=== PATIENT | male | born 2000 | race Caucasian/White ===

== ENCOUNTER 2018-10-12 15:07 | Emergency (ER) | payer MEDICAID ==
[2018-10-12] MEDS ORDERED: LIDOCAINE 1% INJ-PF (10 MG/ML) 30 ML SDV INJ ONE (15:32)
--- NOTE | 2018-10-12 15:33 | ER Document Report ---
ED Medical Screen (RME) - General Chief Complaint: Laceration Stated Complaint: LACERATION TO LEFT MIDDLE FINGER Time Seen by Provider: 10/12/18 15:19 TRAVEL OUTSIDE OF THE [place] IN LAST 30 DAYS: No - HPI Notes: 10/12/18 15:31 Patient is a 18-year-old male no significant past medical history and tetanus reported to be up-to-date within the last couple years who presents complaining of laceration to his left anterior distal third digit of his hand when he was laying sonya today. Patient states that he caught his finger between would hammer. He still able to move his finger without difficulties otherwise. Denies MOSES, fever, neck pain, URI, CP, SOB, Abd pain, dysuria, back pain, or rash. I have treated and performed a rapid initial assessment of this patient. A comprehensive ED assessment and evaluation of the patient, analysis of test results and completion of medical decision making process will be conducted by additional ED providers. PHYSICAL EXAMINATION: GENERAL: Well-appearing, well-nourished and in no acute distress. A&Ox4. Answers questions appropriately. Lt hand: + 1.5cm slightly irregular superficial lac to the anterior distal 3rd digit. N/V intact distal. FROM. Strength 5+/5. - Related Data Allergies/Adverse Reactions: No Known Allergies Allergy (Verified 10/12/18 15:12) Past Medical History - Social History Chew tobacco use (# tins/day): No Frequency of alcohol use: None Drug Abuse: None Renal/ Medical History: Denies: Hx Peritoneal Dialysis
--- NOTE | 2018-10-12 16:00 | RADIOLOGY REPORT (SQ) ---
EXAM DESCRIPTION: HAND LEFT 3 VIEWS COMPLETED DATE/TIME: 10/12/2018 3:52 pm REASON FOR STUDY: Lac/injury left 3rd digit COMPARISON: None. EXAM PARAMETERS: NUMBER OF VIEWS: Three views. TECHNIQUE: AP, lateral and oblique radiographic images acquired of the left hand. LIMITATIONS: None. FINDINGS: MINERALIZATION: Normal. BONES: No acute fracture or dislocation. No worrisome bone lesions. JOINTS: No effusions. SOFT TISSUES: No soft tissue swelling. No 3rd finger tip radiopaque foreign body. OTHER: No other significant finding. IMPRESSION: NEGATIVE STUDY OF THE LEFT HAND. NO RADIOGRAPHIC EVIDENCE OF ACUTE INJURY. TECHNICAL DOCUMENTATION: JOB ID: [id number] [facility]- All Rights Reserved Reading location - IP/workstation name: [email or web address]
--- NOTE | 2018-10-12 16:15 | ER Document Report ---
ED Wound - General Chief Complaint: Laceration Stated Complaint: LACERATION TO LEFT MIDDLE FINGER Time Seen by Provider: 10/12/18 15:19 Mode of Arrival: Ambulatory Information source: Patient TRAVEL OUTSIDE OF THE [place] IN LAST 30 DAYS: No - HPI Notes: 18 yr old male presents the ED for evaluation of left third finger laceration after he actively himself with a hammer and it cut his tip of his finger approximately 2 hours ago. Tetanus is up-to-date. Denies any numbness or tingling in bilateral upper extremities. Is not on blood thinners, no over-the- counter medications have been tried. Bleeding is controlled. Denies any other area of injury. Pain is 4 out of 10, throbbing achy. Denies fevers, chills, chest pain,palpitations, shortness of breath, dyspnea, nausea, vomiting, diarrhea, abdominal pain, hematuria,LH, dizziness, syncope, headaches, weakness, bowel or bladder dysfunction, saddle anesthesia, numbness or tingling in bilateral upper or lower extremities equally, muscle paralysis, weakness in bilateral upper or lower extremities equally or rash. - Related Data Allergies/Adverse Reactions: No Known Allergies Allergy (Verified 10/12/18 15:12) Past Medical History - General Information source: Patient - Social History Smoking Status: Never Smoker Chew tobacco use (# tins/day): No Frequency of alcohol use: None Drug Abuse: None Family History: Reviewed & Not Pertinent Patient has suicidal ideation: No Patient has homicidal ideation: No Renal/ Medical History: Denies: Hx Peritoneal Dialysis Review of Systems - Review of Systems Constitutional: No symptoms reported EENT: No symptoms reported Cardiovascular: No symptoms reported Respiratory: No symptoms reported Gastrointestinal: No symptoms reported Genitourinary: No symptoms reported Male Genitourinary: No symptoms reported Musculoskeletal: No symptoms reported Skin: See HPI Hematologic/Lymphatic: No symptoms reported Neurological/Psychological: No symptoms reported Physical Exam - Vital signs Vitals: Temp Pulse Resp BP Pulse Ox 98.2 F 92 18 136/75 H 100 10/12/18 15:11 10/12/18 15:11 10/12/18 15:11 10/12/18 15:11 10/12/18 15:11 - Notes Notes: PHYSICAL EXAMINATION: GENERAL: Well-appearing, well-nourished and in no acute distress. HEAD: Atraumatic, normocephalic. EYES: Pupils equal round and reactive to light, extraocular movements intact, sclera anicteric, conjunctiva are normal. ENT: Nares patent, oropharynx clear without exudates. Moist mucous membranes. NECK: Normal range of motion, supple without lymphadenopathy LUNGS: Breath sounds clear to auscultation bilaterally and equal. No wheezes rales or rhonchi. HEART: Regular rate and rhythm without murmurs ABDOMEN: Soft, nontender, nondistended abdomen. No guarding, no rebound. No masses appreciated. Musculoskeletal: Normal range of motion, no pitting or edema. No cyanosis. NEUROLOGICAL: Cranial nerves grossly intact. Normal speech, normal gait. Normal sensory, motor exams PSYCH: Normal mood, normal affect. SKIN: Warm, Dry, normal turgor, no rashes or lesions noted. 1.5 cm linear and somewhat laceration to distal phalanx on volar aspect. Pain to left 3rd distal phalange. . no pain to wrist with flexion, extension, inversion, eversion of wrist. digits in right and left with full aprom.. Banquet Bartender + 2 BUE equally. Snuffbox tenderness negative on left. radial pulses + 2 BUE equally. Negative kanavels sign. o vascular compromise.No body crepitus or focal area of TTP. no pain with opposition, flexion, extension, abduction and adduction on left 3rd digit. Motor and sensory function of ulnar, radial, medial nerves intact bilaterally and equally. Course - Re-evaluation Re-evalutation: 10/12/18 17:31 18-year-old male, vitals stable no distress. Nurse's notes reviewed. Verbal consent given for suture repair. Lidocaine anesthetic injected no foreign body seen in exploration of wound. 4 simple sutures placed with Prolene. Patient tolerated procedure without incident. Follow-up in 7 to 10 days for suture removal. Patient had full movement of fingers, negative Tinel sign. Noted resistance with passive range of motion in all fingers in his left hand. after performing a Medical Screening Examination, I estimate there is LOW risk for OPEN FRACTURE, COMPARTMENT SYNDROME, TENDON RUPTURE, ACUTE NEUROVASCULAR INJURY, or RETAINED FOREIGN BODY, thus I consider the discharge disposition reasonable. Also, there is no evidence or peritonitis, sepsis, or toxicity. I have reevaluated this patient multiple times and no significant life threatening changes are noted. The patient and I have discussed the diagnosis and risks, and we agree with discharging home with close follow-up with the understanding that symptoms and presentations can change. We also discussed returning to the Emergency Department immediately if new or worsening symptoms occur. We have discussed the symptoms which are most concerning (e.g., changing or worsening pain, fever, numbness, weakness, cool or painful digits) that necessitate immediate return. - Vital Signs Vital signs: Temp Pulse Resp BP Pulse Ox 98.2 F 92 18 136/75 H 100 10/12/18 15:11 10/12/18 15:11 10/12/18 15:11 10/12/18 15:11 10/12/18 15:11 Procedures - Laceration/Wound Repair Left 3rd digit Time completed: 16:08 Wound length (cm): 1.5 - cm Wound's Depth, Shape: Linear, Irregular Laceration pre-procedure: Sterile PPE donned, Shur-Clens applied Anesthetic type: 1% Lidocaine Wound explored: Clean Wound Debrided: Minimal Wound Repaired With: Sutures Suture Size/Type: 5:0 - prolene Number of Sutures: 4 Layer Closure?: No Post-procedure wound care: Sterile dressing applied Post-procedure NV exam normal: Yes Complications: No Notes: 10/12/18 16:09 10/12/18 17:33 Discharge - Discharge Clinical Impression: Finger laceration Condition: Stable Disposition: HOME, SELF-CARE Instructions: Laceration Care ([facility]), Antibiotic Ointment Protection ([facility]), Soap Cleansing ([facility]) Additional Instructions: Laceration Care Your laceration has been sutured to keep the skin edges aligned during h ealing. The time of suture removal depends on the nature and location of your cut. Please follow the care instructions the doctor has outlined for you and return for further care, according to the schedule you've been given. Keep the wound and dressing clean. Unless you were told otherwise, you may shower daily, blotting the wound dry with a clean, unused towel. At other times, If the dressing gets wet or blood soaked, remove it and blot the wound dry, then reapply a new dressing. Unless you were instructed otherwise, dressings should be changed at least daily. If any signs of infection occur (swelling, redness, increasing tenderness, red streaks, tender lumps in the armpit or groin above the laceration, or fever), see the doctor immediately. Follow-up with primary care provider or the ED for suture removal within the next 7 to 10 days, wash with soap water twice a day, do not submerge in water. You can apply triple antibiotic ointment for the first couple days, for any redness, swelling or drainage occurs return to the ED for reevaluation. Return immediately for any new or worsening symptoms. Follow up with primary care provider, call tomorrow to make followup appointment. Forms: Return to Work Referrals: ALEJANDRA BURTON MD [ACTIVE STAFF] - Follow up as needed
[2018-10-12 17:07] VITALS: BP 118/68
== END 2018-10-12 17:13 | disposition home or self-care (01) ==
LOC: ER 15:07
DX: S61.213A Laceration without foreign body of left middle finger without damage to nail, initial encounter (principal); W27.8XXA Contact with other nonpowered hand tool, initial encounter
CPT/HCPCS: 99283; 73130; 12001; J3490